=== PATIENT | female | born 1995 | race Two or more races ===

== ENCOUNTER 2018-11-10 02:26 | Emergency (ER) | payer OTHER ==
[~2018-11-10] VITALS: Ht 175.3 cm; Wt 59.0 kg
[2018-11-10 02:41] VITALS: BP 107/68
[2018-11-10 03:04] LABS: BILIRUBIN,URINE NEGATIVE (NEGATIVE); BLOOD, URINE 3+ Ery/uL (NEGATIVE); KETONES,URINE NEGATIVE (NEGATIVE); LEUKOCYTE ESTERASE ,URINE 3+ (NEGATIVE); NITRITE, URINE POSITIVE (NEGATIVE); PROTEIN,URINE 2+ mg/dl (NEGATIVE); UGLUCOSE NEGATIVE (NEGATIVE); UROBILINOGEN,URINE 0.2 EU/dL (0.2)
[2018-11-10 03:08] LABS: APPEARANCE,URINE TURBID (CLEAR); COLOR,URINE ORANGE (YELLOW)
[2018-11-10 03:09] LABS: BACTERIA,URINE Few /HPF (None Seen); RBC,URINE TOO NUMEROUS TO COUN /HPF (0-2); SQUAMOUS EPITHELIAL CELL,UR Rare /HPF (None Seen); WBC,URINE TOO NUMEROUS TO COUN /HPF (0-3)
--- NOTE | 2018-11-14 07:41 | NUR ---
infection control note Jo made aware of the positive urine cx: patient stated she completed her antibiotic therapy.Education was given about e. coli, patient verbalized understanding.
== END 2018-11-10 03:33 | disposition home or self-care (01) ==
LOC: ER 02:37
DX: N39.0 Urinary tract infection, site not specified (principal)
CPT/HCPCS: 81000-TC; 84703-TC; 87086-TC; 87186-TC

== ENCOUNTER 2018-11-21 22:45 | Emergency (ER) | payer OTHER ==
[~2018-11-21] VITALS: Ht 170.2 cm; Wt 60.3 kg
--- NOTE | 2018-11-21 22:57 | NUR ---
URINE COLLECTED AND SENT TO LAB
[2018-11-21 23:19] LABS: APPEARANCE,URINE Clear (CLEAR); BILIRUBIN,URINE Negative (NEGATIVE); BLOOD, URINE Moderate Ery/uL (NEGATIVE); COLOR,URINE Yellow (YELLOW); KETONES,URINE Negative (NEGATIVE); LEUKOCYTE ESTERASE ,URINE Negative (NEGATIVE); NITRITE, URINE Negative (NEGATIVE); PH,URINE 5.5 (5.0-8.0); PROTEIN,URINE Negative (NEGATIVE); UGLUCOSE Negative (NEGATIVE); UROBILINOGEN,URINE 0.2 EU/dL (0.2)
--- NOTE | 2018-11-21 23:26 | NUR ---
PT PRESENTED TO THE ER WANTING TO RECHECK HER URINE FOR A UTI. PT DENIES FEVER, N/V, CHILLS, OR PAIN WITH URINATION. PT AMBULATED TO ER 16 WITH A STEADY GAIT. PT ALREADY GAVE A URINE SAMPLE AND IT WAS SENT TO THE LAB.
[2018-11-21 23:41] LABS: RBC,URINE 21-50 /HPF (0-2)
[2018-11-21 23:43] LABS: BACTERIA,URINE None seen /HPF (None Seen); SQUAMOUS EPITHELIAL CELL,UR Few /HPF (None Seen)
--- NOTE | 2018-11-21 23:49 | NUR ---
PT IS BEING D/C'D BY DR GATICA
--- NOTE | 2018-11-21 23:50 | NUR ---
dPatient discharged to home in stable condition. Written and verbal after care instructions given. Patient verbalizes understanding of instruction. PT REC'D A COPY OF THE LABS. PT AMBULATED OUT WITH A STEADY GAIT. VSS.
[2018-11-22 00:18] VITALS: BP 125/67
== END 2018-11-21 23:35 | disposition home or self-care (01) ==
LOC: ER 22:48
DX: Z00.00 Encounter for general adult medical examination without abnormal findings (principal); Z87.440 Personal history of urinary (tract) infections
CPT/HCPCS: 81001; 99283; A4606; 81000-TC